=== PATIENT | male | born 1970 | race Caucasian/White ===

== ENCOUNTER → 2019-08-31 | Outpatient (CLI) | payer OTHER ==
--- NOTE | 2019-09-19 17:37 | SLEEP ---
[address] [address] SLEEP STUDY REPORT Name: LINDA VILLALOBOS Room: [facility]#: [id number] Admission: 08/31/19 Attend Phys: Mackenzie Langford Discharge: Date of : 68 Report #: [id number] THIS REPORT FOR: //name// CC: Mackenzie Valdez This study has been reviewed in its entirety by a board certified sleep specialist DATE OF SERVICE: 08/31/2019 ATTENDING PHYSICIAN: Mackenzie Shrestha Meng, DO The patient is 49 years old, who weighs 285 pounds with a BMI of 38.6. The patient's [place] score was 0. The patient underwent split night study performed at [facility]. During the night study, the patient spent 487 minutes in bed and slept for 420 minutes with a sleep efficiency of 86%. Sleep latency was 19.5 minutes with a REM latency of 77 minutes. Sleep architecture showed normal stage 1 and stage 2 sleep, increased slow wave and increased REM sleep. During the initial diagnostic portion of the study, the patient slept for 88.1 minutes. During that time, the patient had 20 obstructive apneas, no mixed or central apneas, and 43 hypopneas. The patient's apnea-hypopnea index was 42.9 per hour with a REM index of 85 per hour and a supine index of 48 per hour. EKG monitoring revealed an average heart rate of 76 beats per minute. No sustained arrhythmias observed. PLMS were seen at an index of 48 per hour and 5 per hour caused EEG arousals. PLM index improved to 14 per hour while the patient slept on CPAP and arousal index to only 0.7 per hour. Nocturnal oximetry study revealed a mean oxygen saturation of 91% with the lowest of 67%. Sixteen minutes were spent in oxygen saturation of less than 89% and 5 minutes with saturation of less than 79%. The patient met the criteria for CPAP initiation. It was started at 5 cm water and titrated up to 17 cm water. At the final pressure, the patient slept for 97 minutes including 68 minutes of supine REM sleep. The patient's AHI was reduced to 0.6 per hour and oxygen saturation remained above 93%. IMPRESSION: 1. Severe sleep apnea-hypopnea syndrome at an AHI of 42.9 per hour. 2. Nocturnal hypoxia secondary to obstructive sleep apnea, but [place] [address] SLEEP STUDY REPORT Name: LINDA VILLALOBOS Room: [facility]#: [id number] Admission: 08/31/19 Attend Phys: Mackenzie Langford Discharge: Date of : 68 Report #: [id number] 3. Moderate periodic limb movements, but significantly improved while the patient slept on CPAP and as such does not need to be treated. RECOMMENDATIONS: 1. CPAP at 17 cm water completely eliminated the patient's sleep apnea and should be used on a nightly basis. 2. Follow up in 4-6 weeks to assess compliance with CPAP and to document clinical improvement. 3. Weight loss is strongly advised. 4. Avoid [employer] depressants. 5. Cautioned regarding driving until symptoms of sleep apnea resolve with the use of CPAP. <ELECTRONICALLY SIGNED> By: Jesus Alberto Chávez MD 09/19/19 1737 [id number] Chávez MD /nt
== END ==
LOC: M.SLEEPLAB 19:41
DX: G47.30 Sleep apnea, unspecified (principal); G47.33 Obstructive sleep apnea (adult) (pediatric); R09.02 Hypoxemia; I10 Essential (primary) hypertension; E11.9 Type 2 diabetes mellitus without complications; E78.5 Hyperlipidemia, unspecified; E55.9 Vitamin D deficiency, unspecified; E66.01 Morbid (severe) obesity due to excess calories; Z68.41 Body mass index [BMI] 40.0-44.9, adult; Z79.82 Long term (current) use of aspirin; Z79.899 Other long term (current) drug therapy